=== PATIENT | female | born 1990 | race Caucasian/White ===

== ENCOUNTER 2020-02-17 07:20 | Day surgery (SDC) | payer MEDICAID, SELFPAY ==
[2020-02-17] MEDS ORDERED: SIMETHICONE 40 MG/0.6 ML ML ONE (08:26)
[2020-02-17 08:35] LABS: HCG,QUAL RESULT NEGATIVE (NEGATIVE)
[2020-02-17] MEDS: MEPERIDINE HCL/PF 100 MG/ML AMP ONE ×3 (08:49→08:54)
[2020-02-17] MEDS: MIDAZOLAM HCL 5 MG/5 ML VIAL ONE ×4 (08:49→08:56)
[2020-02-17] MEDS ORDERED: MIDAZOLAM HCL 5 MG/5 ML VIAL ONE (08:56)
[2020-02-17 11:18] VITALS: BP_SYST 107
== END 2020-02-17 10:05 | disposition home or self-care (01) ==
LOC: SDS 07:20 → SMU 07:20 → SDS 10:05
PROVIDERS: ATTEND Internal Medicine Gastroenterology
DX: K62.5 Hemorrhage of anus and rectum (principal); K64.9 Unspecified hemorrhoids; K59.04 Chronic idiopathic constipation; K76.0 Fatty (change of) liver, not elsewhere classified; E78.00 Pure hypercholesterolemia, unspecified; Z79.899 Other long term (current) drug therapy; Z87.891 Personal history of nicotine dependence
CPT/HCPCS: 45378; 84703; 99152; G0378; J2175; J2250; U0003